=== PATIENT | female | born 1965 | race Caucasian/White ===

== ENCOUNTER 2018-06-15 18:53 | Emergency (ER) | payer BC ==
--- NOTE | 2018-06-15 19:03 | EDM.PDOC ---
ED HPI GENERAL MEDICAL PROBLEM - General Stated Complaint: HURT LT WRIST Time Seen by Provider: 06/15/18 18:59 Source of Information: Reports: Patient History Limitations: Reports: No Limitations - History of Present Illness INITIAL COMMENTS - FREE TEXT/NARRATIVE: HISTORY AND PHYSICAL: History of present illness: 53-year-old female presenting to emergency department with chief complaint of left wrist pain 1 week. Patient states that approximately a week ago she began have some left wrist pain. She denies any trauma to the area and states that the pain just gradually came on and has worsened. Thinks pain is worse in the morning. She has not taken anything for the pain. She denies any previous history of injury to the wrist. She denies any decreased range of motion, sensation, but has had some feelings of decreased strength. 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 On exam daily negative Tinel's positive. Pain is localized predominantly to the radial side of the wrist with notable pain with some and wrist movement. There is mild swelling and tenderness in this area as well. Neurovascular intact Review of systems: As per history of present illness and below otherwise all systems reviewed and negative. Past medical history: As per history of present illness and as reviewed below otherwise noncontributory. Surgical history: As per history of present illness and as reviewed below otherwise noncontributory. Social history: No reported history of drug or alcohol abuse. Family history: As per history of present illness and as reviewed below otherwise noncontributory. Physical exam: Please see above H&P HEENT: Atraumatic, normocephalic, pupils reactive, negative for conjunctival pallor or scleral icterus, mucous membranes moist, throat clear, neck supple, nontender, trachea midline. Lungs: Clear to auscultation, breath sounds equal bilaterally, chest nontender. Heart: S1S2, regular, negative for clicks, rubs, or JVD. Abdomen: Soft, nondistended, nontender. Negative for masses or hepatosplenomegaly. Negative for costovertebral tenderness. Pelvis: Stable nontender. Genitourinary: Deferred. Rectal: Deferred. Extremities: Atraumatic, negative for cords or calf pain. Neurovascular unremarkable. Neuro: Awake, alert, oriented. Cranial nerves II through XII unremarkable. Cerebellum unremarkable. Motor and sensory unremarkable throughout. Exam nonfocal. Diagnostics: Three-view left wrist x-ray Therapeutics: Diclofenac 35 mg by mouth 3 times a day 7 days Impression: Left wrist pain De Quervain's tenosynovitis Plan: X-ray of left wrist was unremarkable. Most likely diagnosis de Quervain's teno I don't synovitis. This was discussed with the patient. She already does have a wrist brace which I instructed her to use at nighttime when she sleeps. In addition I gave her a prescription for diclofenac 75 mg by mouth 3 times a day 7 days and instructed her to follow-up with her primary care provider. She should return the emergency department if any new or worsening symptoms. Definitive disposition and diagnosis as appropriate pending reevaluation and review of above. left wrist Pain Score (Numeric/FACES): 7 ED ROS GENERAL - Review of Systems Review Of Systems: ROS reveals no pertinent complaints other than HPI. ED EXAM, GENERAL - Physical Exam Exam: See Below Course - Vital Signs Last Recorded V/S: Last Vital Signs Temp 97.8 F 06/15/18 19:03 Pulse 70 06/15/18 19:03 Resp 16 06/15/18 19:03 BP 198/77 H 06/15/18 19:03 Pulse Ox 98 06/15/18 19:03 - Orders/Labs/Meds Orders: Active Orders 24 hr Category Date Time Status Wrist Comp Min 3V Lt [CR] Stat Exams 06/15/18 19:11 Taken Departure - Departure Time of Disposition: 19:55 Disposition: Home, Self-Care 01 Condition: Good Clinical Impression: Left wrist pain, De Quervain's tenosynovitis - Discharge Information Referrals: PCP,None [Primary Care Provider] - Additional Instructions: My general discharge The following information is given to patients seen in the emergency department who are being discharged to home. This information is to outline your options for follow-up care. We provide all patients seen in our emergency department with a follow-up referral. The need for follow-up, as well as the timing and circumstances, are variable depending upon the specifics of your emergency department visit. If you don't have a primary care physician on staff, we will provide you with a referral. We always advise you to contact your personal physician following an emergency department visit to inform them of the circumstance of the visit and for follow-up with them and/or the need for any referrals to a consulting specialist. The emergency department will also refer you to a specialist when appropriate. This referral assures that you have the opportunity for follow-up care with a specialist. All of these measure are taken in an effort to provide you with optimal care, which includes your follow-up. Under all circumstances we always encourage you to contact your private physician who remains a resource for coordinating your care. When calling for follow-up care, please make the office aware that this follow-up is from your recent emergency room visit. If for any reason you are refused follow-up, please contact the [facility] at and asked to speak to the emergency department charge nurse. [facility] [address] [place] [phone] Please call above number tomorrow to schedule a follow-up appointment with a primary care provider. Be sure to tell them that you were seen in the emergency department and they wish for you to be seen as soon as possible. Take medication as prescribed. Return to emergency department if any new or worsening symptoms. - My Orders Last 24 Hours: My Active Orders 06/15/18 19:11 Wrist Comp Min 3V Lt [CR] Stat - Assessment/Plan Last 24 Hours: My Active Orders 06/15/18 19:11 Wrist Comp Min 3V Lt [CR] Stat
--- NOTE | 2018-06-16 10:49 | CR ---
EXAM DATE: 06/15/18 PATIENT'S AGE: 53 Patient: DEANNE GROVER Facility: [place], [place] Site . Site : [id number] Study: XRay Extremity Left wrist [id number] 7:25:30 PM Ordering Physician: Tramaine Hogan Final Report: Indication: Right wrist pain Technique: Right wrist 3 views Comparison: None Findings: Bones: Alignment is normal. No fractures or bone lesions. Joint spaces: Joint spaces are well maintained. No degenerative changes. Soft tissues: Unremarkable. Impression: No findings to explain pain. Dictated by Sharad Krishnamurthy MD @ Jun 15 2018 7:26PM (Electronic Signature) Report Signed by Proxy. ANITA
== END 2018-06-15 20:05 | disposition home or self-care (01) ==
LOC: MW.ED 18:53
DX: M65.4 Radial styloid tenosynovitis [de Quervain] (principal); M25.532 Pain in left wrist
CPT/HCPCS: 73110-26-LT; 73110-LT; 99283